=== PATIENT | male | born 1980 | race Caucasian/White ===

== ENCOUNTER 2019-03-05 06:55 | Emergency (ER) | payer OTHER ==
[~2019-03-05] VITALS: Ht 190.5 cm; Wt 129.3 kg
[2019-03-05] MEDS ORDERED: PREDNISONE 20 MG TAB PO ONE (08:00)
== END 2019-03-05 08:25 | disposition home or self-care (01) ==
LOC: FSED 06:55
DX: J02.9 Acute pharyngitis, unspecified (principal)
CPT/HCPCS: 83518; 99283; J7512